=== PATIENT | male | born 1985 | race African-American/Black ===

== ENCOUNTER 2018-11-21 23:51 | Emergency (ER) | payer SELFPAY ==
[~2018-11-21] VITALS: Ht 175.3 cm; Wt 124.7 kg
[2018-11-22] MEDS ORDERED: ONDANSETRON HCL 4 MG/2 ML VIAL IM ONE (00:15)
[2018-11-22] MEDS ORDERED: KETOROLAC TROMETH 60MG/2ML VIAL IM ONE (00:15)
[2018-11-22 00:45] LABS: Basophils # (auto) 0 uL; Eosinophils # (auto) 0.3 uL; Mean Corpuscular Hemoglobin 26.5 pg (28.0-32.0); Monocytes # (auto) 0.7 uL; Neutrophils # (auto) 5.3 uL; Nucleated Red Blood Cells % 0.1 %
[2018-11-22 00:47] LABS: Basophils % (auto) 0.1 % (0.0-2.0); Eosinophils % (auto) 3.4 % (0.0-7.0); Hematocrit 40.7 % (41.0-53.0); Hemoglobin 13.2 g/dL (13.5-17.5); Lymphocytes # (auto) 2.2 uL; Lymphocytes % (auto) 26.3 % (10.0-50.0); Mean Corpuscular Hgb Conc. 32.3 g/dL (32.0-36.0); Mean Corpuscular Volume 82.1 fL (80.0-100.0); Monocytes % (auto) 7.8 % (0.0-12.0); Neutrophils % (auto) 62.4 % (37.0-80.0); Platelet Count (auto) 293 10^3/uL (140-450); Red Blood Cells 4.96 10^6/uL (4.5-5.90); Red Cell Distribution Width 13.5 % (11.8-14.3); White Blood Cell 8.5 10^3/uL (4.4-10.8)
[2018-11-22 01:03] LABS: Anion Gap 7 (5-15); BUN/Creatinine Ratio 13.5; Blood Urea Nitrogen 12 mg/dL (7-18); Carbon Dioxide 30 mmol/L (21-32); Chloride 108 mmol/L (98-107); GFR African American 128 mL/min; Glucose 89 mg/dL (74-106); Potassium 4.2 mmol/L (3.5-5.1); Sodium 145 mmol/L (136-145)
[2018-11-22 01:04] LABS: Alanine Aminotransferase 38 U/L (16-61); Albumin 3.5 g/dL (3.4-5.0); Aspartate Aminotransferase 17 U/L (15-37); GFR Non-African American 106 mL/min
[2018-11-22 01:06] LABS: Alkaline Phosphatase 54 U/L (45-117); Bilirubin, Total 0.2 mg/dL (0.2-1.0); Total Protein 7.3 g/dL (6.4-8.2)
[2018-11-22] MEDS ORDERED: HYDROcodone-ACET 10/325MG TAB PO ONE (04:15)
[2018-11-22 04:26] VITALS: BP 126/88
== END 2018-11-22 04:28 | disposition home or self-care (01) ==
LOC: ER 23:58
DX: S33.5XXA Sprain of ligaments of lumbar spine, initial encounter (principal); X58.XXXA Exposure to other specified factors, initial encounter; Y93.89 Activity, other specified; Y99.8 Other external cause status; Y92.89 Other specified places as the place of occurrence of the external cause
CPT/HCPCS: 36415; 74176; 80053; 85025; 96372; 99284; J1885; J2405

== ENCOUNTER 2019-08-16 08:23 | Emergency (ER) | payer OTHER ==
[~2019-08-16] VITALS: Ht 175.3 cm; Wt 117.0 kg
[2019-08-16 08:43] VITALS: BP 105/74
[2019-08-16] MEDS ORDERED: ALBUTEROL SULF 2.5 MG/0.5ML(0.5%) NEB SOLN NEB ONE (10:00)
[2019-08-16] MEDS ORDERED: IPRATROPIUM BROM 0.5 MG/2.5ML INH SOL NEB ONE (10:00)
== END 2019-08-16 10:42 | disposition home or self-care (01) ==
LOC: ER 08:23
DX: J06.9 Acute upper respiratory infection, unspecified (principal); J45.909 Unspecified asthma, uncomplicated
CPT/HCPCS: 71046; 94640; 99283; J7611; J7644

== ENCOUNTER 2019-11-02 20:41 | Emergency (ER) | payer OTHER ==
[~2019-11-02] VITALS: Ht 175.3 cm; Wt 112.9 kg
[2019-11-02 21:29] VITALS: BP 139/85
[2019-11-02 22:22] LABS: Urine Bacteria NONE SEEN /hpf (None Seen); Urine Blood Negative /uL (Negative); Urine Mucus FEW (None Seen); Urine Specific Gravity 1.024 (1.001-1.035); Urine WBC <1 /hpf (0 - 3)
[2019-11-02 22:35] LABS: Basophils # (auto) 0 uL; Basophils % (auto) 0.2 % (0.0-2.0); Eosinophils # (auto) 0.3 uL; Eosinophils % (auto) 3.4 % (0.0-7.0); Hematocrit 39.6 % (41.0-53.0); Hemoglobin 13.1 g/dL (13.5-17.5); Mean Corpuscular Hgb Conc. 32.9 g/dL (32.0-36.0); Monocytes # (auto) 0.7 uL; Monocytes % (auto) 8.7 % (0.0-12.0); Neutrophils # (auto) 4.8 uL; Neutrophils % (auto) 61.7 % (37.0-80.0); Nucleated Red Blood Cells % 0.1 %; Platelet Count (auto) 293 10^3/uL (140-450); Red Blood Cells 4.84 10^6/uL (4.5-5.90); Red Cell Distribution Width 13.3 % (11.8-14.3); White Blood Cell 7.7 10^3/uL (4.4-10.8)
[2019-11-02 22:54] LABS: Albumin 3.5 g/dL (3.4-5.0); Anion Gap 8 (5-15); Blood Urea Nitrogen 13 mg/dL (7-18); Calcium 8.2 mg/dL (8.5-10.1); Carbon Dioxide 23 mmol/L (21-32); Chloride 112 mmol/L (98-107); Glucose 84 mg/dL (74-106); Lipase 120 U/L (73-393); Potassium 4.1 mmol/L (3.5-5.1); Sodium 143 mmol/L (136-145)
[2019-11-02 22:58] LABS: Alanine Aminotransferase 34 U/L (16-61); Alkaline Phosphatase 56 U/L (45-117); Aspartate Aminotransferase 13 U/L (15-37); BUN/Creatinine Ratio 14.8; Bilirubin, Total 0.2 mg/dL (0.2-1.0); GFR African American 129 mL/min; GFR Non-African American 107 mL/min; Total Protein 7.4 g/dL (6.4-8.2)
[2019-11-03] MEDS ORDERED: ONDANSETRON ODT 4 MG TAB PO ONE (00:45)
[2019-11-03] MEDS ORDERED: KETOROLAC TROMETH 60MG/2ML VIAL IM ONE (01:45)
== END 2019-11-03 02:03 | disposition home or self-care (01) ==
LOC: ER 20:42
DX: R10.9 Unspecified abdominal pain (principal); F17.210 Nicotine dependence, cigarettes, uncomplicated; J45.909 Unspecified asthma, uncomplicated
CPT/HCPCS: 36415; 74176; 80053; 81001; 83690; 85025; 96372; 99284; J1885; Q0162

== ENCOUNTER 2021-05-14 08:57 | Day surgery (SDC) | payer OTHER ==
[~2021-05-14] VITALS: Ht 175.3 cm; Wt 120.2 kg
[2021-05-14] MEDS ORDERED: ceFAZolin 1GM/50ML 100 ML IV ONE (10:22)
[2021-05-14] MEDS ORDERED: MORPHINE SULFATE 4 MG/ML SYR/VIAL IV PRN (10:45)
[2021-05-14] MEDS ORDERED: METOCLOPRAMIDE HCL 5MG/ml INJ 2ml VIAL IV PRN (10:45)
[2021-05-14] MEDS ORDERED: HYDROmorphone HCL 2 MG/ML VL IV PRN (10:45)
[2021-05-14] MEDS ORDERED: SUCCINYLCHOLINE CHLORIDE 20 MG/ML 10ML VIAL IV ONE (11:56)
[2021-05-14] MEDS ORDERED: ROCURONIUM 10MG/ML 10ML VIAL IV ONE (11:56)
[2021-05-14] MEDS ORDERED: GLYCOPYRROLATE 0.2 MG/ML 1ML VIAL ONE (12:04)
[2021-05-14] MEDS ORDERED: ONDANSETRON HCL 4 MG/2 ML VIAL ONE (12:04)
[2021-05-14] MEDS ORDERED: SODIUM CHLORIDE LOCK 10 ML ONE (12:04)
[2021-05-14] MEDS ORDERED: PROPOFOL 10 MG/ML 20 ML IV ONE (12:04)
[2021-05-14] MEDS ORDERED: MIDAZOLAM HCL 2MG/2ML 2ml VIAL (1mg/ml) ONE (12:04)
[2021-05-14] MEDS ORDERED: fentaNYL CITRATE 100 MCG/2 ML VL ONE (12:04)
[2021-05-14] MEDS ORDERED: NEOSTIGMINE 1 MG/ML INJ (10mg/10ML VIAL) ONE (12:04)
[2021-05-14] MEDS ORDERED: fentaNYL CITRATE 5 ML ONE (12:04)
[2021-05-14] MEDS ORDERED: MEPERIDINE HCL (25 MG/ML) 1ML VIAL ONE (12:05)
[2021-05-14] MEDS ORDERED: BUPIVACAINE HCL 50 ML ONE (12:09)
[2021-05-14] MEDS ORDERED: EPINEPHrine HCL 1 MG/1 ML AMP ONE (12:25)
[2021-05-14 15:45] VITALS: BP 145/80
== END 2021-05-14 16:15 | disposition home or self-care (01) ==
LOC: SUR 08:57
PROVIDERS: ATTEND Orthopaedic Surgery Sports Medicine
DX: S43.492D Other sprain of left shoulder joint, subsequent encounter (principal); J45.909 Unspecified asthma, uncomplicated; E66.01 Morbid (severe) obesity due to excess calories; F17.210 Nicotine dependence, cigarettes, uncomplicated; G89.29 Other chronic pain; Z20.822 Contact with and (suspected) exposure to COVID-19; Z98.890 Other specified postprocedural states; Z79.899 Other long term (current) drug therapy; Z68.39 Body mass index [BMI] 39.0-39.9, adult; Z91.048 Other nonmedicinal substance allergy status; X58.XXXD Exposure to other specified factors, subsequent encounter
CPT/HCPCS: 29807; C1713; J0171; J0330; J0690; J2175; J2250; J2405; J2704; J3010; J3490; U0003; A4565

== ENCOUNTER 2021-05-17 18:08 | Emergency (ER) | payer OTHER ==
[~2021-05-17] VITALS: Ht 175.3 cm; Wt 117.9 kg
[2021-05-17 20:16] VITALS: BP 151/95
== END 2021-05-17 21:30 | disposition left against medical advice (07) ==
LOC: ER 18:08
DX: M25.512 Pain in left shoulder (principal); Z53.21 Procedure and treatment not carried out due to patient leaving prior to being seen by health care provider
CPT/HCPCS: 73030